=== PATIENT | female | born 1960 | race Two or more races ===

== ENCOUNTER 2024-12-16 13:56 | Inpatient (IN) | payer MEDICARE ==
[~2024-12-16] VITALS: Ht 165.1 cm; Wt 113.4 kg
[2024-12-16] MEDS ORDERED: ACET-868 PO (14:47)
[2024-12-16] MEDS ORDERED: OLAN10TA3 PO (14:47)
[2024-12-16] MEDS ORDERED: MAGN400O6 PO (14:47)
[2024-12-16] MEDS ORDERED: MULT-213 PO (14:47)
[2024-12-16] MEDS ORDERED: BISA10SU11 RC (14:47)
[2024-12-16] MEDS ORDERED: MELA3TAB41 PO (14:47)
[2024-12-16] MEDS ORDERED: POLY15DR31 EACHEYE (14:47)
[2024-12-16] MEDS ORDERED: DIVA125C5 PO (14:47)
[2024-12-16] MEDS ORDERED: CLON0.1T PO (14:47)
[2024-12-16] MEDS ORDERED: NA P133E RC (14:47)
[2024-12-16] MEDS ORDERED: ATOR20TA PO (14:47)
[2024-12-16] MEDS ORDERED: MAG-5 PO (14:47)
[2024-12-16] MEDS ORDERED: PANT40TA2 PO (14:47)
[2024-12-16] MEDS ORDERED: DOCU100T2 PO (14:47)
[2024-12-16 14:53] LABS: PLATELET COUNT (AUTO) 261 K/uL (150-450); RED BLOOD CELL COUNT(AUTO) 4.43 MIL/uL (4.0-5.2); RED CELL DISTRIBUTION WIDTH 16.8 % (11.5-15.0); WHITE BLOOD COUNT (AUTO) 8.0 K/uL (4.3-11.0)
[2024-12-16 15:01] LABS: CALCIUM, SERUM 8.6 mg/dL (8.5-10.1); CREATININE 0.7 mg/dL (0.6-1.3); SODIUM SERUM 139 mmol/L (136-145); UREA NITROGEN, BLOOD 11 mg/dL (7-18)
[2024-12-16 15:07] LABS: ASPARTATE AMINOTRANSFERASE 15 U/L (15-37); TOTAL PROTEIN, SERUM 7.2 g/dL (6.4-8.2)
[2024-12-16 15:25] LABS: ALCOHOL, BLOOD < 3 mg/dL (0-10)
[2024-12-16 15:34] LABS: APPEARANCE,URINE CLEAR (CLEAR); BLOOD, URINE NEGATIVE Ery/uL (NEGATIVE); LEUKOCYTE ESTERASE ,URINE NEGATIVE (NEGATIVE); NITRITE, URINE NEGATIVE (NEGATIVE); UGLUCOSE NEGATIVE (NEGATIVE)
[2024-12-16 15:59] LABS: AMPHETAMINE, URINE NEGATIVE (NEGATIVE); BARBITURATE, URINE NEGATIVE (NEGATIVE); BENZODIAZEPINE, URINE NEGATIVE (NEGATIVE); CANNABINOID, URINE NEGATIVE (NEGATIVE); COCCAINE, URINE NEGATIVE (NEGATIVE); OPIATE, URINE NEGATIVE (NEGATIVE)
[2024-12-16 16:30] LABS: ADD URINE CULTURE NO; SQUAMOUS EPITHELIAL CELL,UR Moderate /HPF (None Seen)
[2024-12-16] MEDS ORDERED: LORAZEPAM 1 MG TABLET PO PRN (17:00)
[2024-12-16] MEDS ORDERED: ACETAMINOPHEN 325 MG TABLET PO PRN ×2 (17:00→17:30)
[2024-12-16] MEDS ORDERED: TEMAZEPAM 15 MG CAPSULE PO PRN (17:00)
[2024-12-16] MEDS ORDERED: MAG HYDROX/AL HYDROX/SIMETH 30 ML UDC PO PRN ×2 (17:00→17:30)
[2024-12-16] MEDS ORDERED: MAGNESIUM HYDROXIDE 30 ML UDC PO PRN ×2 (17:00→17:30)
[2024-12-16] MEDS: BLOOD SUGAR DIAGNOSTIC 1 EACH STRIP IN ONE (17:29)
[2024-12-16] MEDS ORDERED: POLYVINYL ALCOHOL 15 ML BOTTLE EACHEYE PRN (17:30)
[2024-12-16] MEDS ORDERED: HOME MED MISCELLANEOUS XX SCH (17:30)
[2024-12-16] MEDS ORDERED: NA PHOS,M-B/NA PHOS,DI-BA 1 EA ENEMA RC PRN (17:30)
[2024-12-16] MEDS ORDERED: CLONIDINE HCL 0.1 MG TABLET PO PRN (17:30)
[2024-12-16] MEDS ORDERED: BISACODYL SUPP (10 MG) 10 MG/SUPP.RECT SUPP.RECT RC PRN (17:30)
[2024-12-16 20:04] VITALS: BP 119/80; TEMP 97.5; O2SAT 95
[2024-12-16] MEDS: ATORVASTATIN 10 MG TABLET PO SCH (21:31)
[2024-12-17 08:00] VITALS: BP 117/71; TEMP 98.4; O2SAT 94
[2024-12-17 08:27] LABS: LDL 94 mg/dL (0-99)
[2024-12-17 08:32] LABS: ASPARTATE AMINOTRANSFERASE 17.0 U/L (15-37); CALCIUM, SERUM 8.8 mg/dL (8.5-10.1); CREATININE 0.6 mg/dL (0.6-1.3); SODIUM SERUM 139.0 mmol/L (136-145); TOTAL PROTEIN, SERUM 7.1 g/dL (6.4-8.2); UREA NITROGEN, BLOOD 11.0 mg/dL (7-18)
[2024-12-17] MEDS: PANTOPRAZOLE 40 MG TABLET.DR PO SCH (09:45)
[2024-12-17] MEDS: MULTIVITAMINS,THERAGRAN 1 UDTAB TABLET PO SCH (09:45)
[2024-12-17] MEDS: DOCUSATE SODIUM 100 MG CAPSULE PO SCH (09:45)
[2024-12-17 16:00] VITALS: BP 108/92; TEMP 97.5; O2SAT 94
[2024-12-17] MEDS ORDERED: OLANZAPINE 10 MG VIAL IM PRN (19:00)
[2024-12-17 20:42] VITALS: BP 114/57; TEMP 98.3; O2SAT 94
[2024-12-18 08:00] VITALS: BP 124/55; TEMP 97.7; O2SAT 97
[2024-12-18] MEDS: OLANZAPINE 10 MG TABLET PO SCH (08:37)
[2024-12-18 16:00] VITALS: BP_SYST 118; BP_SYST 136; BP_DIAS 58; BP_DIAS 79; TEMP 97.9; TEMP 98; O2SAT 95; O2SAT 97
[2024-12-18 21:01] VITALS: BP 102/63; TEMP 97.8; O2SAT 96
[2024-12-19 08:00] VITALS: BP 114/55; TEMP 98.8; O2SAT 97
[2024-12-19 16:00] VITALS: BP 114/66; TEMP 98.6; O2SAT 94
[2024-12-19 20:24] VITALS: BP 109/65; TEMP 98.3; O2SAT 97
[2024-12-20 08:00] VITALS: BP 129/75; TEMP 98.6; O2SAT 97
[2024-12-20 16:00] VITALS: BP 113/60; TEMP 98.7; O2SAT 98
[2024-12-20 20:10] VITALS: BP 112/67; TEMP 97.9; O2SAT 99
[2024-12-21 08:00] VITALS: BP 128/75; TEMP 97.7; O2SAT 96
[2024-12-21 16:00] VITALS: BP 130/78; TEMP 97.7; O2SAT 96
[2024-12-21 20:00] VITALS: BP 93/44; TEMP 98; O2SAT 96
[2024-12-21 20:23] VITALS: BP 93/44; TEMP 98; O2SAT 96
[2024-12-22 08:00] VITALS: BP 110/67; TEMP 97.8; O2SAT 98
[2024-12-22 16:00] VITALS: BP 104/53; TEMP 97.8; O2SAT 98
[2024-12-22 20:00] VITALS: BP 103/87; TEMP 97.3; O2SAT 96
[2024-12-22 20:12] VITALS: BP 103/87; TEMP 97.3; O2SAT 96
[2024-12-23 08:00] VITALS: BP 127/65; TEMP 98.2; O2SAT 98
[2024-12-23 16:00] VITALS: BP 129/80; TEMP 97.7; O2SAT 95
[2024-12-24 05:11] VITALS: BP 121/80; TEMP 97.3; O2SAT 97
[2024-12-24 08:00] VITALS: BP 132/71; TEMP 97.8; O2SAT 97
[2024-12-24 16:00] VITALS: BP 97/65; TEMP 97.9; O2SAT 96
[2024-12-24 21:08] VITALS: BP 117/58; TEMP 98; O2SAT 97
[2024-12-25 08:11] VITALS: BP 131/84; TEMP 97.8; O2SAT 93
[2024-12-25 16:02] VITALS: BP 101/64; TEMP 98; O2SAT 99
[2024-12-25 20:47] VITALS: BP 128/58; TEMP 97.6; O2SAT 96
[2024-12-26 08:00] VITALS: BP 116/68; TEMP 98.1; O2SAT 98
[2024-12-26 16:00] VITALS: BP 125/66; TEMP 98.4; O2SAT 93
[2024-12-26 20:39] VITALS: BP 134/68; TEMP 98.2; O2SAT 95
[2024-12-27 08:00] VITALS: BP 133/89; TEMP 97.7; O2SAT 98
[2024-12-27 16:00] VITALS: BP 126/83; TEMP 98.7; O2SAT 98
[2024-12-27 19:56] VITALS: BP 144/67; TEMP 98.1; O2SAT 97
[2024-12-28 08:00] VITALS: BP 136/75; TEMP 97.9; O2SAT 96
== END 2024-12-28 10:13 | DRG 885 ==
LOC: ER 14:12 → GPS 15:41
PROVIDERS: ADMIT Nurse Practitioner Psychiatric/Mental Health; ATTEND Nurse Practitioner Acute Care
DX: F29 Unspecified psychosis not due to a substance or known physiological condition (principal); E44.1 Mild protein-calorie malnutrition; Z68.41 Body mass index [BMI] 40.0-44.9, adult; F20.0 Paranoid schizophrenia; J44.9 Chronic obstructive pulmonary disease, unspecified; K21.9 Gastro-esophageal reflux disease without esophagitis; E66.01 Morbid (severe) obesity due to excess calories; E78.5 Hyperlipidemia, unspecified; E88.09 Other disorders of plasma-protein metabolism, not elsewhere classified; F32.A Depression, unspecified; I10 Essential (primary) hypertension; R73.9 Hyperglycemia, unspecified
CPT/HCPCS: 36415; 80048-TC; 80053-TC; 80061-TC; 80076-TC; 80164-TC; 81001; 85025-TC; G0480